=== PATIENT | female | born 1975 | race Caucasian/White ===

== ENCOUNTER 2019-07-03 13:40 | Outpatient (CLI) | payer MEDICAID | END 2019-07-03 23:59 | disposition home or self-care (01) | LOC: D.MAMMO 13:40 | PROVIDERS: ATTEND Nurse Practitioner | DX: Z12.31 Encounter for screening mammogram for malignant neoplasm of breast (principal) ==

== ENCOUNTER 2019-08-05 08:00 | Outpatient (CLI) | payer MEDICAID | END 2019-08-05 23:59 | disposition home or self-care (01) | LOC: D.MAMMO 08:00 | PROVIDERS: ATTEND Nurse Practitioner | DX: R92.8 Other abnormal and inconclusive findings on diagnostic imaging of breast (principal) ==